=== PATIENT | male | born 1945 | race African-American/Black ===

== ENCOUNTER → 2016-06-09 | Outpatient (CLI) | payer OTHER ==
[~2016-06-09] MED LIST: ALBUTEROL17 GM IH; ASPIRIN81 M1 PO; COUMADIN,JANTOVE4 MG PO; DILANTIN100 MG PO; HYDROCHLOROTHIA25 MG PO; MOTRIN400 MG PO; NORVASC5 MG PO; ROBAXIN500 MG PO; TYLENOL REGULA325 MG PO; VERAPAMIL HCL180 M2 PO
== END | disposition home or self-care (01) ==
LOC: EKG 12:40
DX: J44.9 Chronic obstructive pulmonary disease, unspecified (principal); I27.2 Other secondary pulmonary hypertension; R09.02 Hypoxemia; Z99.81 Dependence on supplemental oxygen; Z87.891 Personal history of nicotine dependence
CPT/HCPCS: 93306

== ENCOUNTER 2016-11-13 16:59 | Emergency (ER) | payer OTHER ==
[~2016-11-13] VITALS: Ht 188 cm; Wt 110.7 kg
[2016-11-13 17:32] LABS: HEMATOCRIT 42.7 % (38.0-50.0); MCH 28.5 PG (29.0-34.0); MCHC 33.3 G/DL (30.0-36.0); MCV 85.7 FL (86-99); MEAN PLAT.VOLUME 10.3 uM^3 (9.0-12.4); PLATELET COUNT 305 K/uL (156-360); RBC DIS.WIDTH-CV 12.7 % (11.8-14.6); RBC DIS.WIDTH-SD 39.9 % (39-53); RED BLOOD COUNT 4.98 M/uL (4.00-5.50); WHITE BLOOD COUNT 7.3 K/uL (4.1-10.2)
[2016-11-13 17:41] LABS: CHLORIDE 96 mEq/L (99-109); POTASSIUM 3.4 mEq/L (3.7-5.4); SODIUM 138 mEq/L (136-147)
[2016-11-13 17:42] LABS: GLUCOSE 99 mg/dL (70-99)
[2016-11-13 17:44] LABS: ANION GAP 13 MEQ/L (2-14)
[2016-11-13 17:46] LABS: GFR ESTIMATE (CALCULATED) 51 mL/min/
[2016-11-13 17:47] LABS: UREA NITROGEN (BUN) 29 mg/dL (9-23)
[2016-11-13 21:30] VITALS: BP 138/85
== END 2016-11-13 22:50 | disposition short-term general hospital (02) ==
LOC: EME 16:59
PROVIDERS: Emergency Medicine
DX: R06.02 Shortness of breath (principal); N43.3 Hydrocele, unspecified; N50.89 Other specified disorders of the male genital organs; J44.9 Chronic obstructive pulmonary disease, unspecified; I10 Essential (primary) hypertension; R56.9 Unspecified convulsions; Z86.711 Personal history of pulmonary embolism; Z86.718 Personal history of other venous thrombosis and embolism; Z79.01 Long term (current) use of anticoagulants; Z87.891 Personal history of nicotine dependence
CPT/HCPCS: 71010; 76870; 80048; 83880; 85027; 99281; 99285; J1940

== ENCOUNTER 2016-12-17 22:09 | Inpatient (IN) | payer OTHER ==
[~2016-12-17] VITALS: Ht 188 cm; Wt 100.6 kg
[2016-12-17 22:56] LABS: HEMATOCRIT 43.3 % (38.0-50.0); MCH 28.4 PG (29.0-34.0); MCHC 33.7 G/DL (30.0-36.0); MCV 84.2 FL (86-99); MEAN PLAT.VOLUME 10.4 uM^3 (9.0-12.4); NRBC (%) 0.1 /100 WBC (0-0); PLATELET COUNT 320 K/uL (156-360); RBC DIS.WIDTH-CV 13.7 % (11.8-14.6); RBC DIS.WIDTH-SD 42.6 % (39-53); RED BLOOD COUNT 5.14 M/uL (4.00-5.50); WHITE BLOOD COUNT 26.4 K/uL (4.1-10.2)
[2016-12-17 23:06] LABS: CHLORIDE 85 mEq/L (99-109); POTASSIUM 3.8 mEq/L (3.7-5.4); SODIUM 134 mEq/L (136-147)
[2016-12-17 23:08] LABS: GLUCOSE 120 mg/dL (70-99)
[2016-12-17 23:09] LABS: ANION GAP 20 MEQ/L (2-14)
[2016-12-17 23:12] LABS: GFR ESTIMATE (CALCULATED) 21 mL/min/; UREA NITROGEN (BUN) 53 mg/dL (9-23)
[2016-12-17 23:20] LABS: TROP-I INTERPRETATION NEGATIVE; TROPONIN-I 0.06 ng/mL (0.0-0.30)
[2016-12-17 23:58] LABS: INTER. NORMALIZED RATIO 2.2; PROTHROMBIN TIME 25.3 SEC (10.2-12.9)
[2016-12-18] VITALS (18 sets, daily range): BP systolic 0–136; BP diastolic 0–87
[2016-12-18] LABS: PTT 34.8 SEC (25-37)
[2016-12-18 01:01] LABS: BASE EXCESS 5.9 mEq/L (-3 to +3); CARBOXY HGB 2.7 % (0-5); METHEMOGLOBIN 1.5 % (0-1.5)
[2016-12-18 01:02] LABS: COMMENTS - BLOOD GASES C+; DEVICE NC; O2 FLOW 6 L/MIN; PCO2 32 mm Hg (35-45); PO2 43 mm Hg (80-100); SITE LR; TOTAL RESP RATE 30 resp/min; pH 7.55 (7.35-7.45)
[2016-12-18 02:19] LABS: BASE EXCESS 6.4 mEq/L (-3 to +3); BICARBONATE 29.2 mEq/L (22-26); CARBOXY HGB 2.3 % (0-5); COMMENTS - BLOOD GASES C+; DEVICE PB980; METHEMOGLOBIN 1.3 % (0-1.5); PCO2 35 mm Hg (35-45); PO2 63 mm Hg (80-100); SITE LB; pH 7.53 (7.35-7.45)
[2016-12-18 02:20] LABS: FI02 40 %; MODE SPON; PEEP 5 CM/H20; PRES. SUPPORT 10 CM/H2O; TOTAL RESP RATE 32 resp/min
[2016-12-18] MEDS ORDERED: CITRATE OF MAG296 ML PO (03:37)
[2016-12-18] MEDS ORDERED: ANTIFUNGAL CREA15 GM TP (03:37)
[2016-12-18] MEDS ORDERED: NORVASC10 MG PO (03:39)
[2016-12-18] MEDS ORDERED: SPIRIVA1 INHALATI IH (03:40)
[2016-12-18] MEDS ORDERED: PROAIR RESPICL90 MCG IH (03:41)
[2016-12-18] MEDS ORDERED: SENNA PLUS TAB1 EACH PO (03:42)
[2016-12-18] MEDS ORDERED: ADVAIR 250/501 DISK IH (03:42)
[2016-12-18] MEDS ORDERED: MYCOSTATIN15 GM PO (03:43)
[2016-12-18] MEDS ORDERED: LASIX40 MG PO (03:44)
[2016-12-18] MEDS ORDERED: MILK OF MAGN PO (03:44)
[2016-12-18] MEDS ORDERED: PRILOSEC20 MG PO (03:49)
[2016-12-18] MEDS ORDERED: COUMADIN5 MG PO (03:54)
[2016-12-18] MEDS ORDERED: METOLAZONE5 MG PO (03:54)
[2016-12-18] MEDS ORDERED: EXTRA STRENGTH500 M1 PO (03:55)
[2016-12-18 04:09] LABS: METH RESISTANT S AUREUS PCR NEGATIVE (NEGATIVE)
[2016-12-18 04:10] LABS: PROBE CHECK PASS; SPECIMEN PROCESSING CONTROL PASS
[2016-12-18 04:22] LABS: HEMATOCRIT 37.2 % (38.0-50.0); MCH 28.3 PG (29.0-34.0); MCHC 34.4 G/DL (30.0-36.0); MCV 82.1 FL (86-99); PLATELET COUNT 289 K/uL (156-360); RBC DIS.WIDTH-CV 13.7 % (11.8-14.6); RBC DIS.WIDTH-SD 40.8 % (39-53); RED BLOOD COUNT 4.53 M/uL (4.00-5.50); WHITE BLOOD COUNT 19.1 K/uL (4.1-10.2)
[2016-12-18 04:31] LABS: CHLORIDE 88 mEq/L (99-109); INTER. NORMALIZED RATIO 2.7; POTASSIUM 3.2 mEq/L (3.7-5.4); SODIUM 130 mEq/L (136-147)
[2016-12-18 04:33] LABS: GLUCOSE 142 mg/dL (70-99); PTT 35.9 SEC (25-37)
[2016-12-18 04:34] LABS: ANION GAP 17 MEQ/L (2-14)
[2016-12-18 04:37] LABS: ALKALINE PHOSPHATASE 63 IU/L (3-129); GFR ESTIMATE (CALCULATED) 26 mL/min/
[2016-12-18 04:38] LABS: UREA NITROGEN (BUN) 54 mg/dL (9-23)
[2016-12-18 04:38] LABS: BASE EXCESS 6.5 mEq/L (-3 to +3); BICARBONATE 29.1 mEq/L (22-26); CARBOXY HGB 2.4 % (0-5); COMMENTS - BLOOD GASES C+A+; DEVICE VENT; FI02 30 %; METHEMOGLOBIN 1.8 % (0-1.5); MODE SPONT; PCO2 34 mm Hg (35-45); PEEP 5 CM/H20; PO2 54 mm Hg (80-100); PRES. SUPPORT 5 CM/H2O; SITE LR; TOTAL RESP RATE 36 resp/min; pH 7.54 (7.35-7.45)
[2016-12-18 04:44] LABS: SERUM ETHYL ALCOHOL < 10 mg/dL
[2016-12-18 04:52] LABS: POINT-OF-CARE METER ID UU14174217
[2016-12-18 05:33] LABS: ABS NEUTROPHIL COUNT 15.9; BAND NEUTROPHILS 9.6 % (0-8.0); EOSINOPHIL ABS CT 0; INSTRUMENT ABS NEUTROPHIL CT 16.8 K/uL; LYMPHOCYTES 1.8 % (15.0-45.0); METAMYELOCYTES 2.6 %; MYELOCYTES 1.7 %; NUCLEATED RBC'S 0.9; SEG.NEUTROPHILS 73.9 % (46.0-76.0)
[2016-12-18 07:48] LABS: ANISOCYTOSIS 1+; MICROCYTOSIS 1+; PLAT.SUFFICIENCY ADEQUATE
[2016-12-18 11:01] LABS: ADD MIUA? YES; BILIRUBIN NEGATIVE; BLOOD MODERATE; COLOR YELLOW ((YELLOW)); GLUCOSE (STRIP) NEGATIVE; KETONES NEGATIVE; LEUKOCYTES NEGATIVE; NITRITE NEGATIVE; PROTEIN (STRIP) 30; SPECIFIC GRAVITY 1.016 (1.000-1.030); UROBILINOGEN 0.2 MG/DL (0.2-1.0)
[2016-12-18 11:03] LABS: BACTERIA NONE SEEN /HPF; EPITHELIAL CELLS NONE SEEN /HPF; MUCUS NONE SEEN /LPF; RED BLOOD CELLS 0-5 /HPF (0-5); UCUL ADDED? NO; WHITE BLOOD CELLS 0-5 /HPF (0-5)
[2016-12-18 11:20] LABS: AMPHETAMINES QUANT VALUE 0 NG/ML; BARBITUATES QUANT VALUE 0 NG/ML; BENZODIAZEPINES QUANT VALUE 0 NG/ML; BENZODIAZEPINES, URINE SCREEN Negative (200 ng/mL); MARIJUANA QUANT VALUE 0 NG/ML; OPIATES QUANTITATIVE VALUE 0 NG/ML; PHENCYCLIDINE QUANT VALUE 0 NG/ML
[2016-12-18 12:46] LABS: POINT-OF-CARE METER ID UU14174217
[2016-12-18] MEDS ORDERED: DUONEB 2.5-0.5 M3 ML AEROSOL (12:51)
[2016-12-18] MEDS ORDERED: ONMEL200 MG PO (12:55)
[2016-12-18 18:03] LABS: POINT-OF-CARE METER ID UU13113748
[2016-12-18 23:29] LABS: POINT-OF-CARE METER ID UU13113748
[2016-12-19] VITALS (22 sets, daily range): BP systolic 87–118; BP diastolic 54–88
[2016-12-19 05:44] LABS: HEMATOCRIT 35.6 % (38.0-50.0); MCH 28.2 PG (29.0-34.0); MCHC 34.3 G/DL (30.0-36.0); MCV 82.2 FL (86-99); MEAN PLAT.VOLUME 11.3 uM^3 (9.0-12.4); NRBC (%) 0.2 /100 WBC (0-0); PLATELET COUNT 260 K/uL (156-360); RBC DIS.WIDTH-CV 13.8 % (11.8-14.6); RBC DIS.WIDTH-SD 41.4 % (39-53); RED BLOOD COUNT 4.33 M/uL (4.00-5.50); WHITE BLOOD COUNT 24.8 K/uL (4.1-10.2)
[2016-12-19 05:57] LABS: INTER. NORMALIZED RATIO 3.3; PROTHROMBIN TIME 37.9 SEC (10.2-12.9)
[2016-12-19 06:15] LABS: ALKALINE PHOSPHATASE 64 IU/L (3-129); ANION GAP 12 MEQ/L (2-14); CHLORIDE 93 MEQ/L (99-109); GFR ESTIMATE (CALCULATED) 42 mL/min/; GLUCOSE 159 mg/dL (70-99); POTASSIUM 3.5 MEQ/L (3.7-5.4); SAMPLE HEMOLYSIS CHECK 0; SAMPLE ICTERIC CHECK 0; SAMPLE LIPEMIA CHECK 0; SODIUM 135 MEQ/L (136-147); TOTAL BILIRUBIN 0.6 MG/DL (0.0-1.0); UREA NITROGEN (BUN) 45 mg/dL (9-23)
[2016-12-19 08:21] LABS: INTERNAL CONTROL VALID? YES
[2016-12-19 13:25] LABS: POINT-OF-CARE METER ID UU13113731
[2016-12-19 15:49] LABS: POINT-OF-CARE METER ID UU13113731
[2016-12-19 23:58] LABS: POINT-OF-CARE METER ID UU13113731
[2016-12-20] VITALS (20 sets, daily range): BP systolic 84–116; BP diastolic 47–79
[2016-12-20 05:49] LABS: MCH 28.2 PG (29.0-34.0); MCHC 34.2 G/DL (30.0-36.0); MCV 82.3 FL (86-99); MEAN PLAT.VOLUME 11.8 uM^3 (9.0-12.4); NRBC (%) 0.4 /100 WBC (0-0); PLATELET COUNT 271 K/uL (156-360); RBC DIS.WIDTH-CV 13.8 % (11.8-14.6); RBC DIS.WIDTH-SD 41.4 % (39-53); RED BLOOD COUNT 4.01 M/uL (4.00-5.50); WHITE BLOOD COUNT 25.5 K/uL (4.1-10.2)
[2016-12-20 06:56] LABS: ANION GAP 13 MEQ/L (2-14); CHLORIDE 90 MEQ/L (99-109); GFR ESTIMATE (CALCULATED) 40 mL/min/; GLUCOSE 186 mg/dL (70-99); MAGNESIUM 1.9 mg/dl (1.3-2.7); POTASSIUM 3.1 MEQ/L (3.7-5.4); SAMPLE HEMOLYSIS CHECK 0; SAMPLE ICTERIC CHECK 0; SAMPLE LIPEMIA CHECK 0; SODIUM 135 MEQ/L (136-147); UREA NITROGEN (BUN) 50 mg/dL (9-23)
[2016-12-20 08:10] LABS: POINT-OF-CARE METER ID UU13113748
[2016-12-20 12:00] LABS: POINT-OF-CARE METER ID UU13113748
[2016-12-20 13:07] LABS: HIV INDEX 0.12; HIV-1/2 AB/AG COMBO Nonreactive
[2016-12-20 16:37] LABS: POINT-OF-CARE METER ID UU13113748
[2016-12-20 17:13] LABS: INTER. NORMALIZED RATIO 3.5; PROTHROMBIN TIME 39.9 SEC (10.2-12.9)
[2016-12-20 23:19] LABS: POINT-OF-CARE METER ID UU14208751
[2016-12-21] VITALS (23 sets, daily range): BP systolic 99–153; BP diastolic 64–85
[2016-12-21 05:10] LABS: MEAN PLAT.VOLUME 11.5 uM^3 (9.0-12.4); PLATELET COUNT 274 K/uL (156-360)
[2016-12-21 05:16] LABS: INTER. NORMALIZED RATIO 3.5; PROTHROMBIN TIME 40.2 SEC (10.2-12.9)
[2016-12-21 05:46] LABS: ANION GAP 9 MEQ/L (2-14); CHLORIDE 96 MEQ/L (99-109); GFR ESTIMATE (CALCULATED) 45 mL/min/; GLUCOSE 185 mg/dL (70-99); POTASSIUM 3.3 MEQ/L (3.7-5.4); SAMPLE HEMOLYSIS CHECK 0; SAMPLE ICTERIC CHECK 0; SAMPLE LIPEMIA CHECK 0; SODIUM 139 MEQ/L (136-147); UREA NITROGEN (BUN) 45 mg/dL (9-23)
[2016-12-21 05:47] LABS: MAGNESIUM 2.2 mg/dl (1.3-2.7)
[2016-12-21 05:51] LABS: HEMATOCRIT 34.3 % (38.0-50.0); MCH 27.4 PG (29.0-34.0); MCHC 33.2 G/DL (30.0-36.0); MCV 82.5 FL (86-99); NRBC (%) 0.2 /100 WBC (0-0); RBC DIS.WIDTH-CV 14.1 % (11.8-14.6); RBC DIS.WIDTH-SD 42.4 % (39-53); RED BLOOD COUNT 4.16 M/uL (4.00-5.50); WHITE BLOOD COUNT 30.7 K/uL (4.1-10.2)
[2016-12-21 08:15] LABS: POINT-OF-CARE METER ID UU13113748
[2016-12-21 12:47] LABS: POINT-OF-CARE METER ID UU14208751
[2016-12-21 17:09] LABS: POINT-OF-CARE METER ID UU14208751
[2016-12-22] VITALS (24 sets, daily range): BP systolic 110–152; BP diastolic 72–93
[2016-12-22 01:37] LABS: QGTB-NIL 0.04 IU/mL (()); TB AG-NIL 0.02 IU/mL (())
[2016-12-22 06:46] LABS: MEAN PLAT.VOLUME 11.5 uM^3 (9.0-12.4); PLATELET COUNT 298 K/uL (156-360)
[2016-12-22 06:53] LABS: POINT-OF-CARE METER ID UU14208751
[2016-12-22 06:55] LABS: HEMATOCRIT 36.6 % (38.0-50.0); MCHC 33.9 G/DL (30.0-36.0); MCV 82.6 FL (86-99); NRBC (%) 0.2 /100 WBC (0-0); RBC DIS.WIDTH-CV 14.6 % (11.8-14.6); RED BLOOD COUNT 4.43 M/uL (4.00-5.50)
[2016-12-22 06:58] LABS: WHITE BLOOD COUNT 36.8 K/uL (4.1-10.2)
[2016-12-22 07:17] LABS: INTER. NORMALIZED RATIO 1.6; PROTHROMBIN TIME 17.8 SEC (10.2-12.9)
[2016-12-22 07:48] LABS: ANION GAP 15 MEQ/L (2-14); CHLORIDE 100 MEQ/L (99-109); GFR ESTIMATE (CALCULATED) 51 mL/min/; GLUCOSE 126 mg/dL (70-99); MAGNESIUM 2.2 mg/dl (1.3-2.7); SAMPLE HEMOLYSIS CHECK 0; SAMPLE ICTERIC CHECK 0; SAMPLE LIPEMIA CHECK 0; SODIUM 142 MEQ/L (136-147); UREA NITROGEN (BUN) 46 mg/dL (9-23)
[2016-12-22 12:04] LABS: POINT-OF-CARE METER ID UU13113748; POINT-OF-CARE USER ID AGYTJR
[2016-12-22 14:41] LABS: MEAN PLAT.VOLUME 11.5 uM^3 (9.0-12.4); PLATELET COUNT 312 K/uL (156-360)
[2016-12-22 16:01] LABS: ABS NEUTROPHIL COUNT 31.2; ANISOCYTOSIS 1+; BAND NEUTROPHILS 25.3 % (0-8.0); EOSINOPHIL ABS CT 0; GIANT PLATELETS 2+; HEMATOCRIT 37.8 % (38.0-50.0); HYPOCHROMASIA 1+; INSTRUMENT ABS NEUTROPHIL CT 27.2 K/uL; LYMPHOCYTES 4.7 % (15.0-45.0); MACROCYTES 1+; MCH 28.6 PG (29.0-34.0); MCHC 34.4 G/DL (30.0-36.0); MCV 83.3 FL (86-99); MYELOCYTES 0.9 %; NRBC (%) 0.4 /100 WBC (0-0); NUCLEATED RBC'S 0.4; PLAT.SUFFICIENCY ADEQUATE; POLYCHROMASIA 1+; RBC DIS.WIDTH-SD 45.1 % (39-53); RED BLOOD COUNT 4.54 M/uL (4.00-5.50); ROULEAUX 2+; SEG.NEUTROPHILS 66.1 % (46.0-76.0); SPHEROCYTES 2+; TARGET CELLS 1+; TOX.VACUOLIZATION 2+; TOXIC GRANULATION 1+
[2016-12-22 16:02] LABS: WHITE BLOOD COUNT 34.1 K/uL (4.1-10.2)
[2016-12-22 16:44] LABS: POINT-OF-CARE METER ID UU14208751; POINT-OF-CARE USER ID AGYTJR
[2016-12-22 22:18] LABS: POINT-OF-CARE METER ID UU14208751
[2016-12-23] VITALS (24 sets, daily range): BP systolic 120–174; BP diastolic 72–104
[2016-12-23 05:37] LABS: HEMATOCRIT 33.9 % (38.0-50.0); MCH 29.4 PG (29.0-34.0); MCHC 35.4 G/DL (30.0-36.0); MCV 83.1 FL (86-99); MEAN PLAT.VOLUME 11.4 uM^3 (9.0-12.4); NRBC (%) 0.3 /100 WBC (0-0); PLATELET COUNT 277 K/uL (156-360); RBC DIS.WIDTH-CV 15.1 % (11.8-14.6); RBC DIS.WIDTH-SD 45.8 % (39-53); RED BLOOD COUNT 4.08 M/uL (4.00-5.50)
[2016-12-23 06:03] LABS: INTER. NORMALIZED RATIO 1.5; PROTHROMBIN TIME 16.6 SEC (10.2-12.9)
[2016-12-23 06:07] LABS: ANION GAP 10 MEQ/L (2-14); CHLORIDE 101 MEQ/L (99-109); GFR ESTIMATE (CALCULATED) 55 mL/min/; GLUCOSE 145 mg/dL (70-99); MAGNESIUM 2.3 mg/dl (1.3-2.7); POTASSIUM 3.9 MEQ/L (3.7-5.4); SAMPLE HEMOLYSIS CHECK 0; SAMPLE ICTERIC CHECK 0; SAMPLE LIPEMIA CHECK 0; SODIUM 142 MEQ/L (136-147); UREA NITROGEN (BUN) 47 mg/dL (9-23)
[2016-12-23 12:19] LABS: POINT-OF-CARE METER ID UU13113731; POINT-OF-CARE USER ID AGYTJR
[2016-12-23 17:54] LABS: POINT-OF-CARE METER ID UU13113731; POINT-OF-CARE USER ID AGYTJR
[2016-12-23 22:17] LABS: POINT-OF-CARE METER ID UU14162636
[2016-12-24] VITALS (16 sets, daily range): BP systolic 0–149; BP diastolic 0–101
[2016-12-24 06:13] LABS: MEAN PLAT.VOLUME 11.4 uM^3 (9.0-12.4); PLATELET COUNT 299 K/uL (156-360)
[2016-12-24 06:16] LABS: INTER. NORMALIZED RATIO 1.6
[2016-12-24 06:39] LABS: ANION GAP 10 MEQ/L (2-14); CHLORIDE 101 MEQ/L (99-109); GFR ESTIMATE (CALCULATED) > 59 mL/min/; GLUCOSE 159 mg/dL (70-99); POTASSIUM 4.3 MEQ/L (3.7-5.4); SAMPLE HEMOLYSIS CHECK 0; SAMPLE ICTERIC CHECK 0; SAMPLE LIPEMIA CHECK 0; SODIUM 142 MEQ/L (136-147); UREA NITROGEN (BUN) 42 mg/dL (9-23)
[2016-12-24 06:42] LABS: MAGNESIUM 1.9 mg/dl (1.3-2.7)
[2016-12-24 08:17] LABS: HEMATOCRIT 35.3 % (38.0-50.0); MCH 28.6 PG (29.0-34.0); MCHC 34.6 G/DL (30.0-36.0); MCV 82.9 FL (86-99); NRBC (%) 0.4 /100 WBC (0-0); RBC DIS.WIDTH-CV 15.5 % (11.8-14.6); RBC DIS.WIDTH-SD 46.7 % (39-53); RED BLOOD COUNT 4.26 M/uL (4.00-5.50)
[2016-12-24 08:18] LABS: WHITE BLOOD COUNT 30.8 K/uL (4.1-10.2)
[2016-12-24 09:22] LABS: POINT-OF-CARE METER ID UU13113748
[2016-12-24 12:41] LABS: POINT-OF-CARE METER ID UU14162636
[2016-12-24 17:25] LABS: POINT-OF-CARE METER ID UU14208751
[2016-12-25] VITALS (8 sets, daily range): BP systolic 128–177; BP diastolic 66–98
[2016-12-25 04:49] LABS: MEAN PLAT.VOLUME 11.6 uM^3 (9.0-12.4); PLATELET COUNT 298 K/uL (156-360)
[2016-12-25 04:54] LABS: INTER. NORMALIZED RATIO 1.6; PROTHROMBIN TIME 18.3 SEC (10.2-12.9)
[2016-12-25 04:57] LABS: MCH 27.9 PG (29.0-34.0); MCHC 33.6 G/DL (30.0-36.0); MCV 82.9 FL (86-99); NRBC (%) 0.3 /100 WBC (0-0); RBC DIS.WIDTH-CV 15.6 % (11.8-14.6); RBC DIS.WIDTH-SD 46.9 % (39-53); RED BLOOD COUNT 4.34 M/uL (4.00-5.50)
[2016-12-25 05:07] LABS: MAGNESIUM 1.5 mg/dL (1.3-2.7); POTASSIUM 4.7 mEq/L (3.7-5.4); SODIUM 141 mEq/L (136-147)
[2016-12-25 05:08] LABS: CHLORIDE 102 mEq/L (99-109)
[2016-12-25 05:09] LABS: GLUCOSE 181 mg/dL (70-99)
[2016-12-25 05:10] LABS: ANION GAP 12 MEQ/L (2-14)
[2016-12-25 05:11] LABS: WHITE BLOOD COUNT 35.1 K/uL (4.1-10.2)
[2016-12-25 05:12] LABS: GFR ESTIMATE (CALCULATED) > 59 mL/min/
[2016-12-25 05:13] LABS: UREA NITROGEN (BUN) 44 mg/dL (9-23)
[2016-12-25 08:44] LABS: POINT-OF-CARE METER ID UU14208751
[2016-12-25 11:43] LABS: POINT-OF-CARE METER ID UU14208751
[2016-12-25 17:32] LABS: POINT-OF-CARE METER ID UU14174217
[2016-12-26] VITALS (8 sets, daily range): BP systolic 128–162; BP diastolic 73–98
[2016-12-26 05:46] LABS: MEAN PLAT.VOLUME 11.5 uM^3 (9.0-12.4); PLATELET COUNT 265 K/uL (156-360)
[2016-12-26 06:00] LABS: MCH 27.6 PG (29.0-34.0); MCHC 32.8 G/DL (30.0-36.0); MCV 84.1 FL (86-99); NRBC (%) 0.2 /100 WBC (0-0); RBC DIS.WIDTH-CV 15.9 % (11.8-14.6); RBC DIS.WIDTH-SD 47.9 % (39-53); RED BLOOD COUNT 4.28 M/uL (4.00-5.50)
[2016-12-26 06:02] LABS: WHITE BLOOD COUNT 36.7 K/uL (4.1-10.2)
[2016-12-26 06:03] LABS: INTER. NORMALIZED RATIO 1.5; PROTHROMBIN TIME 16.7 SEC (10.2-12.9)
[2016-12-26 06:15] LABS: ANION GAP 12 MEQ/L (2-14); CHLORIDE 100 MEQ/L (99-109); GFR ESTIMATE (CALCULATED) > 59 mL/min/; GLUCOSE 151 mg/dL (70-99); MAGNESIUM 1.9 mg/dl (1.3-2.7); POTASSIUM 4.8 MEQ/L (3.7-5.4); SAMPLE HEMOLYSIS CHECK 0; SAMPLE ICTERIC CHECK 0; SAMPLE LIPEMIA CHECK 0; SODIUM 140 MEQ/L (136-147); UREA NITROGEN (BUN) 41 mg/dL (9-23)
[2016-12-26 09:07] LABS: POINT-OF-CARE METER ID UU14174217
[2016-12-26 12:38] LABS: POINT-OF-CARE METER ID UU14174217
[2016-12-26 17:49] LABS: POINT-OF-CARE METER ID UU14174217
[2016-12-27 03:35] VITALS: BP 130/75
[2016-12-27 06:07] LABS: MEAN PLAT.VOLUME 11.1 uM^3 (9.0-12.4); PLATELET COUNT 239 K/uL (156-360)
[2016-12-27 06:35] LABS: INTER. NORMALIZED RATIO 1.5; PROTHROMBIN TIME 16.4 SEC (10.2-12.9)
[2016-12-27 06:36] LABS: ANION GAP 9 MEQ/L (2-14); CHLORIDE 103 MEQ/L (99-109); GFR ESTIMATE (CALCULATED) > 59 mL/min/; GLUCOSE 143 mg/dL (70-99); POTASSIUM 4.7 MEQ/L (3.7-5.4); SAMPLE HEMOLYSIS CHECK 0; SAMPLE ICTERIC CHECK 0; SAMPLE LIPEMIA CHECK 0; SODIUM 142 MEQ/L (136-147); UREA NITROGEN (BUN) 40 mg/dL (9-23)
[2016-12-27 06:39] LABS: VANCOMYCIN, TROUGH 10.1 MCG/ML (10-20)
[2016-12-27 06:45] LABS: POINT-OF-CARE METER ID UU14208753
[2016-12-27 06:57] LABS: HEMATOCRIT 34.5 % (38.0-50.0); MCH 27.8 PG (29.0-34.0); MCHC 33.3 G/DL (30.0-36.0); MCV 83.5 FL (86-99); NRBC (%) 0.1 /100 WBC (0-0); RBC DIS.WIDTH-CV 15.7 % (11.8-14.6); RBC DIS.WIDTH-SD 47.7 % (39-53); RED BLOOD COUNT 4.13 M/uL (4.00-5.50)
[2016-12-27 07:17] LABS: WHITE BLOOD COUNT 33.8 K/uL (4.1-10.2)
[2016-12-27 08:09] VITALS: BP 115/65
[2016-12-27 11:22] LABS: POINT-OF-CARE METER ID UU14208753
[2016-12-27] MEDS ORDERED: POLYETHYLENE GL17 GM PO (12:52)
[2016-12-27] MEDS ORDERED: PREDNISONE20 MG PO (12:53)
[2016-12-27 16:13] LABS: POINT-OF-CARE METER ID UU14208753
== END 2016-12-27 16:51 | DRG 871 ==
LOC: EME 22:09 → EDOF 12-18 01:16 → 4WEST 12-18 01:16 → EDOF 12-18 02:46 → 4WEST 12-18 02:47 → ENRESERV 12-25 14:59 → CANRESERV 12-25 16:11 → ENRESERV 12-25 16:11 → 3EAST 12-26 19:56
PROVIDERS: Emergency Medicine; Internal Medicine; Internal Medicine Critical Care Medicine; Internal Medicine Nephrology; Internal Medicine Pulmonary Disease; Obstetrics & Gynecology; Physician Assistant
DX: A41.9 Sepsis, unspecified organism (principal); J15.212 Pneumonia due to Methicillin resistant Staphylococcus aureus; D68.9 Coagulation defect, unspecified; I27.2 Other secondary pulmonary hypertension; J96.21 Acute and chronic respiratory failure with hypoxia; E87.6 Hypokalemia; E11.65 Type 2 diabetes mellitus with hyperglycemia; J44.0 Chronic obstructive pulmonary disease with (acute) lower respiratory infection; J44.1 Chronic obstructive pulmonary disease with (acute) exacerbation; N17.9 Acute kidney failure, unspecified; I50.32 Chronic diastolic (congestive) heart failure; I11.0 Hypertensive heart disease with heart failure; R00.0 Tachycardia, unspecified; T38.0X5A Adverse effect of glucocorticoids and synthetic analogues, initial encounter; E66.9 Obesity, unspecified; Z99.81 Dependence on supplemental oxygen; Z86.718 Personal history of other venous thrombosis and embolism; Z86.711 Personal history of pulmonary embolism; E87.1 Hypo-osmolality and hyponatremia; Z68.29 Body mass index [BMI] 29.0-29.9, adult; Z79.01 Long term (current) use of anticoagulants; Z87.891 Personal history of nicotine dependence; Z86.11 Personal history of tuberculosis; Z82.5 Family history of asthma and other chronic lower respiratory diseases
CPT/HCPCS: 36600; 71010; 71020; 71250; 80048; 80053; 80202; 80306 90; 81003; 82803; 82948; 83605; 83735; 83880; 84100; 84484; 85025; 85027; 85379; 85610; 85730; 86480 90; 86703; 87040; 87070; 87077; 87116; 87147; 87205; 87206; 87449; 87493; 87641; 93005; 93306; 94002; 94640; 94640 76; 94644; 94760; 94799; 99202; 99281; 99285; G0480; J0692; J1450; J1650; J1815; J1940; J1956; J2020; J2185; J2543; J2920; J2930; J3010; J3370; J3430; J3475; J3480; J7040; J7050; J7120; J7512; S0028

== ENCOUNTER 2017-01-28 05:18 | Inpatient (IN) | payer OTHER ==
[~2017-01-28] VITALS: Ht 188 cm; Wt 71.3 kg
[~2017-01-28 05:18] MED LIST changes: +ADVAIR 250/501 DISK IH; +ANTIFUNGAL CREA15 GM TP; +CITRATE OF MAG296 ML PO; +COUMADIN7.5 MG PO; +DUONEB 2.5-0.5 M3 ML AEROSOL; +EXTRA STRENGTH500 M1 PO; +LASIX40 MG PO; +METOLAZONE5 MG PO; +MILK OF MAGN PO; +MYCOSTATIN15 GM PO; +NORVASC10 MG PO; +ONMEL200 MG PO; +POLYETHYLENE GL17 GM PO; +PREDNISONE20 MG PO; +PRILOSEC20 MG PO; +PROAIR RESPICL90 MCG IH; +SENNA PLUS TAB1 EACH PO; +SPIRIVA1 INHALATI IH
[2017-01-28 05:39] LABS: BASE EXCESS 11.3 mEq/L (-3 to +3); CARBOXY HGB 2.2 % (0-5); METHEMOGLOBIN 1.4 % (0-1.5); pH 7.53 (7.35-7.45)
[2017-01-28 05:40] LABS: BICARBONATE 35.1 mEq/L (22-26); COMMENTS - BLOOD GASES C+A+; DEVICE NIV; FI02 40 %; MODE SPONT; PCO2 42 mm Hg (35-45); PEEP 5 CM/H20; PO2 76 mm Hg (80-100); PRES. SUPPORT 10 CM/H2O; SITE RR; TOTAL RESP RATE 20 resp/min
[2017-01-28 05:49] LABS: HEMATOCRIT 24.7 % (38.0-50.0); MCHC 33.2 G/DL (30.0-36.0); MCV 87.3 FL (86-99); MEAN PLAT.VOLUME 9.9 uM^3 (9.0-12.4); NRBC (%) 17.1 /100 WBC (0-0); RBC DIS.WIDTH-CV 19.9 % (11.8-14.6); RBC DIS.WIDTH-SD 61.3 % (39-53); RED BLOOD COUNT 2.83 M/uL (4.00-5.50); WHITE BLOOD COUNT 17.5 K/uL (4.1-10.2)
[2017-01-28 05:50] LABS: PLATELET COUNT 407 K/uL (156-360)
[2017-01-28 05:56] LABS: INTER. NORMALIZED RATIO 2.6; PROTHROMBIN TIME 30.1 SEC (10.2-12.9)
[2017-01-28 05:59] LABS: PTT 38.3 SEC (25-37)
[2017-01-28 06:03] LABS: CHLORIDE 94 mEq/L (99-109)
[2017-01-28 06:04] LABS: POTASSIUM 3.1 mEq/L (3.7-5.4); SODIUM 140 mEq/L (136-147)
[2017-01-28 06:06] LABS: GLUCOSE 144 mg/dL (70-99)
[2017-01-28 06:07] LABS: ANION GAP 15 MEQ/L (2-14)
[2017-01-28 06:08] LABS: TOTAL BILIRUBIN 0.4 mg/dL (0.0-1.0)
[2017-01-28 06:09] LABS: ALKALINE PHOSPHATASE 102 IU/L (3-129); GFR ESTIMATE (CALCULATED) 51 mL/min/
[2017-01-28 06:11] LABS: UREA NITROGEN (BUN) 19 mg/dL (9-23)
[2017-01-28 06:13] LABS: LIPASE 16 U/L (1.0-51.0)
[2017-01-28 09:52] LABS: ADD MIUA? NO; BILIRUBIN NEGATIVE; BLOOD NEGATIVE; COLOR YELLOW ((YELLOW)); GLUCOSE (STRIP) NEGATIVE; KETONES NEGATIVE; LEUKOCYTES NEGATIVE; NITRITE NEGATIVE; PROTEIN (STRIP) NEGATIVE; SPECIFIC GRAVITY 1.013 (1.000-1.030); UCUL ADDED? NO; UROBILINOGEN 0.2 MG/DL (0.2-1.0)
[2017-01-28 10:04] LABS: IRON 18 MCG/DL (35-150)
[2017-01-28 10:30] LABS: TROP-I INTERPRETATION NEGATIVE; TROPONIN-I 0.04 ng/mL (0.0-0.30)
[2017-01-28 10:54] LABS: FERRITIN 667 NG/ML (22-322)
[2017-01-28] MEDS ORDERED: NORVASC10 MG PO (11:05)
[2017-01-28] MEDS ORDERED: VENTOLIN HFA18 GM IH (11:06)
[2017-01-28] MEDS ORDERED: ARTIFICIAL TEAR15 M1 BOTH EYES ×2 (11:08)
[2017-01-28] MEDS ORDERED: METOLAZONE5 MG PO (11:09)
[2017-01-28] MEDS ORDERED: PRILOSEC20 MG PO (15:40)
[2017-01-28 16:18] LABS: TROP-I INTERPRETATION NEGATIVE; TROPONIN-I 0.05 ng/mL (0.0-0.30)
[2017-01-28 19:10] LABS: HEMATOCRIT 25.3 % (38.0-50.0); MCV 87.2 FL (86-99)
[2017-01-28 19:30] VITALS: BP 102/60
[2017-01-28 22:13] LABS: TROP-I INTERPRETATION NEGATIVE; TROPONIN-I 0.04 ng/mL (0.0-0.30)
[2017-01-28 23:20] VITALS: BP 111/61
[2017-01-29] VITALS (20 sets, daily range): BP systolic 97–116; BP diastolic 55–71
[2017-01-29 06:10] LABS: HEMATOCRIT 20.6 % (38.0-50.0); MCH 30.3 PG (29.0-34.0); MCHC 34.5 G/DL (30.0-36.0); MEAN PLAT.VOLUME 10.4 uM^3 (9.0-12.4); NRBC (%) 10.7 /100 WBC (0-0); PLATELET COUNT 363 K/uL (156-360); RBC DIS.WIDTH-CV 20.3 % (11.8-14.6); RED BLOOD COUNT 2.34 M/uL (4.00-5.50); WHITE BLOOD COUNT 13.3 K/uL (4.1-10.2)
[2017-01-29 06:21] LABS: INTER. NORMALIZED RATIO 2.2; PROTHROMBIN TIME 24.8 SEC (10.2-12.9)
[2017-01-29 06:37] LABS: ANION GAP 11 MEQ/L (2-14); CHLORIDE 99 MEQ/L (99-109); GFR ESTIMATE (CALCULATED) 55 mL/min/; GLUCOSE 160 mg/dL (70-99); POTASSIUM 3.8 MEQ/L (3.7-5.4); SAMPLE HEMOLYSIS CHECK 0; SAMPLE ICTERIC CHECK 0; SAMPLE LIPEMIA CHECK 0; SODIUM 138 MEQ/L (136-147); UREA NITROGEN (BUN) 25 mg/dL (9-23)
[2017-01-29 09:52] LABS: HIV INDEX 0.11; HIV-1/2 AB/AG COMBO Nonreactive
[2017-01-29 10:08] LABS: INTERNAL CONTROL VALID? YES
[2017-01-29 17:28] LABS: INTER. NORMALIZED RATIO 2.6; PROTHROMBIN TIME 29.9 SEC (10.2-12.9)
[2017-01-29 17:49] LABS: HEMATOCRIT 30.4 % (38.0-50.0); MCV 85.6 FL (86-99)
[2017-01-29 19:49] LABS: METH RESISTANT S AUREUS PCR NEGATIVE (NEGATIVE)
[2017-01-29 20:04] LABS: PROBE CHECK PASS; SPECIMEN PROCESSING CONTROL PASS
[2017-01-30] VITALS (15 sets, daily range): BP systolic 111–138; BP diastolic 63–85
[2017-01-30 05:03] LABS: HEMATOCRIT 29.5 % (38.0-50.0); MCH 27.7 PG (29.0-34.0); MCHC 32.5 G/DL (30.0-36.0); MEAN PLAT.VOLUME 10.1 uM^3 (9.0-12.4); NRBC (%) 11.3 /100 WBC (0-0); PLATELET COUNT 389 K/uL (156-360); RBC DIS.WIDTH-CV 21.4 % (11.8-14.6); WHITE BLOOD COUNT 16.9 K/uL (4.1-10.2)
[2017-01-30 05:12] LABS: INTER. NORMALIZED RATIO 3.1; PROTHROMBIN TIME 35.8 SEC (10.2-12.9)
[2017-01-30 05:15] LABS: PTT 33.6 SEC (25-37)
[2017-01-30 05:20] LABS: RED BLOOD COUNT 3.47 M/uL (4.00-5.50)
[2017-01-30 05:28] LABS: ANION GAP 14 MEQ/L (2-14); CHLORIDE 103 MEQ/L (99-109); GFR ESTIMATE (CALCULATED) > 59 mL/min/; GLUCOSE 123 mg/dL (70-99); POTASSIUM 3.8 MEQ/L (3.7-5.4); SAMPLE HEMOLYSIS CHECK 0; SAMPLE ICTERIC CHECK 0; SAMPLE LIPEMIA CHECK 0; SODIUM 143 MEQ/L (136-147); UREA NITROGEN (BUN) 31 mg/dL (9-23)
[2017-01-31 04:00] VITALS: BP 129/88
[2017-01-31 07:21] LABS: HEMATOCRIT 31.6 % (38.0-50.0); MCHC 33.5 G/DL (30.0-36.0); MCV 86.6 FL (86-99); MEAN PLAT.VOLUME 10.5 uM^3 (9.0-12.4); NRBC (%) 11.5 /100 WBC (0-0); PLATELET COUNT 415 K/uL (156-360); RBC DIS.WIDTH-SD 66.1 % (39-53); RED BLOOD COUNT 3.65 M/uL (4.00-5.50); WHITE BLOOD COUNT 14.7 K/uL (4.1-10.2)
[2017-01-31 07:42] LABS: ANION GAP 11 MEQ/L (2-14); CHLORIDE 103 MEQ/L (99-109); GFR ESTIMATE (CALCULATED) > 59 mL/min/; GLUCOSE 101 mg/dL (70-99); POTASSIUM 3.7 MEQ/L (3.7-5.4); SAMPLE HEMOLYSIS CHECK 0; SAMPLE ICTERIC CHECK 0; SAMPLE LIPEMIA CHECK 0; SODIUM 142 MEQ/L (136-147); UREA NITROGEN (BUN) 30 mg/dL (9-23)
[2017-01-31 07:45] LABS: INTER. NORMALIZED RATIO 2.3; PROTHROMBIN TIME 26.3 SEC (10.2-12.9)
[2017-01-31 08:02] VITALS: BP 117/77
[2017-01-31 15:24] VITALS: BP 129/81
[2017-01-31 20:00] VITALS: BP 123/69
[2017-01-31 23:55] VITALS: BP 129/83; BP 131/82
[2017-02-01 04:00] VITALS: BP 143/81
[2017-02-01 05:51] LABS: HEMATOCRIT 35.2 % (38.0-50.0); MCH 27.8 PG (29.0-34.0); MCHC 32.1 G/DL (30.0-36.0); MCV 86.7 FL (86-99); MEAN PLAT.VOLUME 10.1 uM^3 (9.0-12.4); NRBC (%) 5.5 /100 WBC (0-0); PLATELET COUNT 434 K/uL (156-360); RBC DIS.WIDTH-CV 21.2 % (11.8-14.6); RBC DIS.WIDTH-SD 64.6 % (39-53); RED BLOOD COUNT 4.06 M/uL (4.00-5.50)
[2017-02-01 06:04] LABS: INTER. NORMALIZED RATIO 1.9; PROTHROMBIN TIME 21.4 SEC (10.2-12.9)
[2017-02-01 06:19] LABS: ANION GAP 9 MEQ/L (2-14); CHLORIDE 104 MEQ/L (99-109); GFR ESTIMATE (CALCULATED) > 59 mL/min/; POTASSIUM 3.6 MEQ/L (3.7-5.4); SAMPLE HEMOLYSIS CHECK 0; SAMPLE ICTERIC CHECK 0; SAMPLE LIPEMIA CHECK 0; SODIUM 142 MEQ/L (136-147); UREA NITROGEN (BUN) 28 mg/dL (9-23); VANCOMYCIN, TROUGH 17.3 MCG/ML (10-20)
[2017-02-01 06:20] LABS: GLUCOSE 161 mg/dL (70-99)
[2017-02-01 07:24] VITALS: BP 136/80
[2017-02-01] MEDS ORDERED: FUTURO RESTORI1 EACH MC (11:04)
[2017-02-01] MEDS ORDERED: PROTONIX40 MG PO (11:04)
[2017-02-01] MEDS ORDERED: LEVAQUIN500 MG PO (11:04)
[2017-02-01] MEDS ORDERED: MEDROL DOSEPAK4 MG PO (11:07)
[2017-02-01] MEDS ORDERED: ACIDOPHILUS LA1 EACH PO (11:07)
== END 2017-02-01 14:09 | DRG 189 ==
LOC: EME → EDBD 05:18 → 4EAST 07:45 → EDOF 07:45 → ENRESERV 07:54 → 4EAST 15:05 → ENPENDDIS 02-01 → 4EAST 02-01 07:23
PROVIDERS: Emergency Medicine; Internal Medicine; Internal Medicine Pulmonary Disease; Radiology Diagnostic Radiology
PROC: 5A09358 Assistance with Respiratory Ventilation, Less than 24 Consecutive Hours, Intermittent Positive Airway Pressure (ICD-10-PCS; principal; 2017-01-28)
PROC: 30233K1 Transfusion of Nonautologous Frozen Plasma into Peripheral Vein, Percutaneous Approach (ICD-10-PCS; 2017-01-29)
PROC: 30233N1 Transfusion of Nonautologous Red Blood Cells into Peripheral Vein, Percutaneous Approach (ICD-10-PCS; 2017-01-29)
PROC: 0BBJ3ZX Excision of Left Lower Lung Lobe, Percutaneous Approach, Diagnostic (ICD-10-PCS; 2017-01-30)
DX: J96.21 Acute and chronic respiratory failure with hypoxia (principal); J44.1 Chronic obstructive pulmonary disease with (acute) exacerbation; I13.0 Hypertensive heart and chronic kidney disease with heart failure and stage 1 through stage 4 chronic kidney disease, or unspecified chronic kidney disease; I50.32 Chronic diastolic (congestive) heart failure; N18.3 Chronic kidney disease, stage 3 (moderate); K92.2 Gastrointestinal hemorrhage, unspecified; E87.6 Hypokalemia; J98.4 Other disorders of lung; D64.9 Anemia, unspecified; K59.00 Constipation, unspecified; Z99.81 Dependence on supplemental oxygen; Z79.01 Long term (current) use of anticoagulants; Z79.52 Long term (current) use of systemic steroids; Z86.718 Personal history of other venous thrombosis and embolism; Z87.891 Personal history of nicotine dependence
CPT/HCPCS: 36600; 71010; 71250; 71275; 74176; 77012; 78582; 80048; 80053; 80202; 81003; 82272; 82565; 82607; 82728; 82746; 82803; 83540; 83605; 83690; 83880; 84145 90; 84466; 84484; 85014; 85018; 85027; 85379; 85610; 85730; 86703; 86850; 86900; 86901; 86920; 87040; 87070; 87075; 87205; 87449; 87641; 88173; 93005; 93970; 94002; 94640; 94640 76; 94799; 99202; 99281; 99285; A9540; A9567; J0692; J0696; J1100; J1644; J2930; J3010; J3370; J3475; J3480; J7030; J7050; J7512; J7644; P9016; P9017; S0028